=== PATIENT | female | born 1955 | race Caucasian/White ===

== ENCOUNTER → 2019-09-27 11:38 | Outpatient (CLI) | payer OTHER, MEDICAID, SELFPAY ==
--- NOTE | 2019-09-27 | DI.CT.S_ITS ---
PROCEDURE: CT ABDOMEN PELVIS WO/W CON INDICATIONS: Asymptomatic microscopic hematuria TECHNIQUE: Optional 5 mm thick noncontrast images acquired from the diaphragm to the symphysis pubis. After the administration of intravenous contrast, 5 mm thick images acquired from the diaphragm to the symphysis pubis after a 10-minute delay. 2 mm thick coronal and sagittal reformats were then performed of the kidneys and ureters. For radiation dose reduction, the following was used: automated exposure control, adjustment of mA and/or kV according to patient size. COMPARISON: None. FINDINGS: Image quality: Excellent. Lung bases: There is a 4 mm nodule in the right lower lobe, which may be partially calcified. Heart size is normal. Urinary system: Both kidneys are normal in size, without hydronephrosis or nephrolithiasis on pre-contrast images. No perinephric fat stranding. There is normal bilateral renal enhancement. Renal calyces appear normal in morphology when filled with contrast. Opacified portions of both ureters demonstrate normal caliber. There is a pedunculated mass arising from the posterior lateral left side of the bladder wall. The left posterior lateral wall of the bladder is slightly irregular. No calcified bladder stones. Other solid organs: Liver is normal in size and enhancement. Gallbladder contains gallstones. Biliary system is non dilated. Pancreas enhances normally. Spleen is normal in size and enhancement. No adrenal nodules. Peritoneum and bowel: There are a few colonic diverticula. Bowel loops demonstrate normal wall thickness and caliber. No free fluid or air. Nodes and vessels: No retroperitoneal or mesenteric adenopathy by size criteria. Aorta and inferior vena cava are normal in size. Abdominal wall: No ventral hernias. Pelvis: Uterus is absent. The ovaries are not visualized. No pathologic free pelvic fluid. No inguinal hernias or adenopathy. Bones: No suspicious bony lesions. No vertebral body compression fractures. Degenerative changes are noted in lumbar spine. IMPRESSION: 1. There is a pedunculated mass arising from the left posterior lateral side of the bladder wall. The left posterior lateral wall of the bladder is slightly irregular. 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 Recommend cystoscopy for further evaluation. 2. No calcified renal stones. No hydronephrosis. 3. Cholelithiasis. 4. Mild diverticulosis. No acute diverticulitis. 5. Small hiatal hernia. 6. A 4 mm possibly partially calcified nodule in the right lower lobe suggesting benign etiology. Fleischner Society criteria for SOLID lung nodule followup. Nodule size (mm)Low-risk patientHigh-risk patient?4No follow-up neededFollow-up at 12 mo; if no change, no further follow-up>[id number] CT at 12 mo; if no change, no further follow-up needed.Initial follow-up CT at 6-12 mo, then 18-24 mo if no change. >6-8Initial follow-up CT at 6-12 mo, then 18-24 mo if no change. Initial follow-up CT at 3-6 mo, then 9-12 mo and 24 mo if no change. >8Follow-up CT at 3, 9, 24 mo. Or PET and/or biopsy.Same as for low-risk pts. Dictated by: Jacek Armijo M.D. on 09/27/2019 at 17:35 Approved by: Jacek Armijo M.D. on 09/27/2019 at 17:48
[2019-09-27 12:44] LABS: Blood Urea Nitrogen 22 mg/dL (7-17); Estimated Glomerular Filt Rate 50.3 mL/min (>60)
== END ==
PROVIDERS: PCP Physician Assistant Medical; Visit Provider Urology
DX: R31.21 Asymptomatic microscopic hematuria (principal); R91.1 Solitary pulmonary nodule; N32.9 Bladder disorder, unspecified; K80.20 Calculus of gallbladder without cholecystitis without obstruction; K57.90 Diverticulosis of intestine, part unspecified, without perforation or abscess without bleeding; K44.9 Diaphragmatic hernia without obstruction or gangrene
CPT/HCPCS: 36415; 74178; 82565; 84520; Q9967

== ENCOUNTER → 2023-11-21 10:41 | Outpatient (CLI) | payer MEDICARE, SELFPAY ==
--- NOTE | 2023-11-21 10:44 | DI.RAD.S_ITS ---
PROCEDURE: FL BARIUM SWALLOW W SPEECH INDICATIONS: Dysphagia, unspecified COMPARISON: TECHNIQUE: Examination was conducted in conjunction with speech pathology per standard protocol. In the lateral projection, filming was performed of the patient swallowing. AP projection filming may also be performed with patient swallowing. COMPARISON: [facility] [place], CR, XR BONE LENGTH SCANOGRAM, 09/06/2023, 10:46. FINDINGS: Function: No laryngotracheal penetration or aspiration. No pathologic vallecular pooling. Mild esophageal dysmotility. The distal esophagus appears slightly narrowed. Morphology: No cricopharyngeal bar is identified. No cervical esophageal webs. No Zenker's diverticulum. No strictures. At the end of the examination, AP oblique images of the esophagus were obtained. Note is made of mild esophageal dysmotility. A calibrated barium tablet was given by mouth and went through the esophagus without difficulty. There is mild narrowing of the distal esophagus without obstruction. IMPRESSION: 1. No laryngeal penetration or aspiration. Please see separate speech pathologist's report for detail. 2. Mild esophageal dysmotility. 3. Mild narrowing of the distal esophagus without obstruction. Consider esophagram for further evaluation. Dictated by: Jacek Armijo M.D. on 11/21/2023 at 13:27 Approved by: Jacek Armijo M.D. on 11/21/2023 at 20:39
--- NOTE | 2023-11-21 15:18 | ST.SWALLOW ---
Visit Care Team Role Provider Type Omar Sawyer MD Primary Care Provider Non-Staff Specialty: Internal Medicine Address: [address] [place] [address] [address], [place], [address] Email: Nelson Hancock MD Attending Provider Physician Referring Provider Specialty: Ear, Nose, Throat Address: [address] [place] [address] [place], [address] Email: [email or web address] Modified Barium Swallow Study [employer] Modified Barium Swallow Study Start: 11/21/23 14:41 Freq: Status: Active Protocol: Document 11/21/23 14:42 LNK (Rec: 11/21/23 15:18 LNK [id number]) Modified Barium Swallow Study Total Time Visit Start Time 11:15 Visit Stop Time 11:45 Total Visit Minutes [address] Hancock, ENT Setting Setting Outpatient Care Patient Information Identification Type Name,Date of Patient History pt was seen for a Modified Barium Swallow Study at the referral of Dr. Hancock, ent. According to the pt and reviewed physician notes, the pt c/o difficulty with swallowing, describing her swallow as weird. Pt described foods getting stuck in her throat needing to drink a liquid in order to help the food pass into her stomach. She described one instance in which she ate 3 bites of something and had to throw it up because she could not swallow. Pt is taking PPI for GERD. She stated she thinks her swallow has improved over the past 6 months since taking PPI. Pt denies choking when she eats and difficulty swallowing liquids. Subjective Observations Pt was seated in the fluoroscopy chair. Directions and procedures were described for the pt. She indicated she understood and agreed to proceed. Patient Positioning Position View Lat-A/P Imaging Lateral View Textures Administered Trials Presented Thin Liquid via Spoon (IDDSI 0 ),Thin Liquid via Cup (IDDSI 0 ),Extremely Thick Liquid via Spoon (IDDSI 4),Regular (IDDSI 7) Barium Tablet Yes The IDDSI Framework Protocol: IDDSI.1 Oral Impairment Source: The Modified Barium Swallow Impairment Profile (MBSImP??) Lip Closure No labial escape Tongue Control During Bolus Hold Cohesive bolus between tongue to palatal seal Bolus Preparation/Mastication Timely & efficient chewing & mashing Bolus Transport/Lingual Motion Brisk tongue motion Oral Residue Complete oral clearance Initiation of Pharyngeal Swallow Bolus head in valleculae Additional Oral Impairment Observations OME and DKS was noted to be WNL. Dentition was natural in good hygiene. Mastication WNL with rotary chew pattern and complete clearance of the oral cavity. oral phase WNL. Pharyngeal Impairment Source: The Modified Barium Swallow Impairment Profile (MBSImP??) Soft Palate Elevation No bolus between soft palate & pharyngeal wall Laryngeal Elevation Part.sup.move.thyroid cart/ part.approx.arytenoids to epiglot.petiole Anterior Hyoid Excursion Partial anterior movement Epiglottic Movement Complete inversion Laryngeal Vestibular Closure Complete; no air/contrast in laryngeal vestibule Pharyngeal Stripping Wave Present - complete Pharyngoesophageal Segment Opening Complete distention & complete duration; no obstruction of flow Tongue Base Retraction Trace column of contrast/air betwn tongue base & post. pharyngeal wall Pharyngeal Residue Trace residue within/on pharyngeal structures Location Diffuse (>3 areas) Additional Pharyngeal Impairment The esophageal phase of Observations swallowing for the pt was WNL. There was a reduction in hyolaryngeal elevation and movement. However, the epiglottis inversion was complete with a good seal of the laryngeal vestibule. trace residue was seen throughout the pharynx following the trials. A/P View Textures Administered Trials Presented Thin Liquid via Spoon (IDDSI 0 ) The IDDSI Framework Protocol: IDDSI.1 A/P View Observations Pharyngeal Contraction Complete Esophageal Clearance Upright Position Complete clearance; esophageal coating Vocal Fold Function Good Esophageal Function Slowed Clearing,Narrowing Additional A-P Observations The esophageal phase was observed to be WFL. Narrowing was noted in the distal esophagus near the LES slowing the barium tablet into the stomach. Pt reported a sense of the tablet being stuck at that point. When the tablet entered the stomach, the pt noted the sensation was gone. Recommendations
--- NOTE | 2023-12-05 13:27 | ST.SWALLOW ---
Visit Care Team Role Provider Type Omar Sawyer MD Primary Care Provider Non-Staff Specialty: Internal Medicine Address: [address] [place] [address] [address], [place], [address] Email: Nelson Hancock MD Attending Provider Physician Referring Provider Specialty: Ear, Nose, Throat Address: [address] [place] [address] [place], [address] Email: [email or web address] Modified Barium Swallow Study MEETING PLANNER Modified Barium Swallow Study Start: 11/21/23 14:41 Freq: Status: Active Protocol: Document 11/21/23 14:42 LNK (Rec: 11/21/23 15:18 [id number]) Modified Barium Swallow Study Total Time Visit Start Time 11:15 Visit Stop Time 11:45 Total Visit Minutes [address] Hancock, ENT Setting Setting Outpatient Care Patient Information Identification Type Name,Date of Patient History pt was seen for a Modified Barium Swallow Study at the referral of Dr. Hancock, ent. According to the pt and revied physician notes, the pt c/o difficulty with swallowing, describing her swallow as wierd. Pt described foods getting stuck in her throatn needing to drink a liquid in order to help the food pass into her stomach. She described one instance in which she ate 3 bites of something and had to throw it up because she could not swallow. Pt is taking PPI for GERD. She stated she thinks her swallow has improved over the past 6 months since taking PPI. Pt denies choking when she eats and difficulty swallowing liquids. Subjective Observations Pt was seated in the fluoroscopy chair. Directions and procedures were described for the pt. She indicated she understood asnd agreed to proceed. Patient Positioning Position View Lat-A/P Imaging Lateral View Textures Administered Trials Presented Thin Liquid via Spoon (IDDSI 0 ),Thin Liquid via Cup (IDDSI 0 ),Extremely Thick Liquid via Spoon (IDDSI 4),Regular (IDDSI 7) Barium Tablet Yes The IDDSI Framework Protocol: IDDSI.1 Oral Impairment Source: The Modified Barium Swallow Impairment Profile (MBSImP??) Lip Closure No labial escape Tongue Control During Bolus Hold Cohesive bolus between tongue to palatal seal Bolus Preparation/Mastication Timely & efficient chewing & mashing Bolus Transport/Lingual Motion Brisk tongue motion Oral Residue Complete oral clearance Initiation of Pharyngeal Swallow Bolus head in valleculae Additional Oral Impairment Observations OME and DKS was noted to be WNL. Dentition was natural in good hygeine. Mastication WNL with rotary chew pattern and complete clearance of the oral cavity. oral phase WNL. Pharyngeal Impairment Source: The Modified Barium Swallow Impairment Profile (MBSImP??) Soft Palate Elevation No bolus between soft palate & pharyngeal wall Laryngeal Elevation Part.sup.move.thyroid cart/ part.approx.arytenoids to epiglot.petiole Anterior Hyoid Excursion Partial anterior movement Epiglottic Movement Complete inversion Laryngeal Vestibular Closure Complete; no air/contrast in laryngeal vestibule Pharyngeal Stripping Wave Present - complete Pharyngoesophageal Segment Opening Complete distention & complete duration; no obstruction of flow Tongue Base Retraction Trace column of contrast/air betwn tongue base & post. pharyngeal wall Pharyngeal Residue Trace residue within/on pharyngeal structures Location Diffuse (>3 areas) Additional Pharyngeal Impairment The esophageal phase of Observations swallowing for the pt was WNL. There was a reduction in hyolaryngeal elevation and movement. However, the epiglottis inversion was complete with a good seal of the laryngel vestibule. trace residue was seen throughout the pharynx following the trials. A/P View Textures Administered Trials Presented Thin Liquid via Spoon (IDDSI 0 ) The IDDSI Framework Protocol: IDDSI.1 A/P View Observations Pharyngeal Contraction Complete Esophageal Clearance Upright Position Complete clearance; esophageal coating Vocal Fold Function Good Esophageal Function Slowed Clearing,Narrowing Additional A-P Observations The esophageal phase was observed to be WFL. Narrowing was noted in the distal esophagus near the LES slowing the barium tablet into the stomach. Pt reported a sense of the tablet being stuck at that point. When the tablet entered the stomach, the pt noted the sensation was gone. Clinical Impressions Findings Pt presented with swallowing ( all phases) WFL. Esophageal clearing was mildly slowed with a delay of the barium tablet into the stomach observed. Pt reported a need to drink liquids in order to relieve the stuck sensation. No diet changes are recommended at this time. It was recommended that the pt alternate solids and liquids to aid the esophagus in emptying into the stomach. Pt was shown images from her MBSS with the esophageal delay discussed. Pt may benefit from referral to GI. She indicated she understood and agreed to the suggestions. She was encouraged to discuss these results with her Dr. re: referral to GI Patient Appropriate for Therapy No Recommendations Diet Comments No diet changes recommended at this time Aspiration Precautions Recommended Precautions Frequent Rest Periods,Small Bites/Sips Treatment Plan Recommended Referrals GI Consult Therapy Strategy Recommendations Small Bites and Sips,Alternate Liquids/Solids
== END ==
LOC: RAD 10:42
PROVIDERS: PCP Internal Medicine; Referring Provider Otolaryngology; Visit Provider Otolaryngology
DX: R13.10 Dysphagia, unspecified (principal); K22.4 Dyskinesia of esophagus
CPT/HCPCS: 74230; 92611